=== PATIENT | male | born 1995 | race Caucasian/White ===

== ENCOUNTER → 2018-03-23 | Outpatient (CLI) | payer BC ==
[~2018-03-23] MED LIST: HUMALOG100 U/ML SC; NORCO 325 MG-51 TAB PO; NOVOLOG FLEX100 U/ML SQ; ZOFRAN4 M1 PO
== END ==
LOC: SUN.DIA 14:36
DX: E10.9 Type 1 diabetes mellitus without complications (principal); Z79.4 Long term (current) use of insulin
CPT/HCPCS: G0108

== ENCOUNTER → 2018-04-19 | Outpatient (CLI) | payer BC | LOC: SUN.DIA 13:11 | DX: E10.9 Type 1 diabetes mellitus without complications (principal); Z79.4 Long term (current) use of insulin | CPT/HCPCS: G0108 ==

== ENCOUNTER 2018-06-22 10:54 | Emergency (ER) | payer BC ==
[~2018-06-22] VITALS: Ht 172.7 cm; Wt 61.4 kg
[2018-06-22] MEDS ORDERED: TRACEBA (13:18)
[2018-06-22 13:55] LABS: COLLECTION METHOD CLEAN CATCH
[2018-06-22 14:04] LABS: PH 6 (5-8); SQUAMOUS EPITHELIAL None Seen /hpf; URINE APPEARANCE Clear; URINE BACTERIA None Seen /hpf; URINE BILIRUBIN Negative (NEGATIVE); URINE BLOOD Negative (NEGATIVE); URINE COLOR Yellow; URINE GLUCOSE 3+ (NEGATIVE); URINE KETONE Trace (NEGATIVE); URINE LEUKOCYTE ESTERASE Negative (NEGATIVE); URINE NITRATE Negative (NEGATIVE); URINE PROTEIN(semi-quant) Negative (NEGATIVE); URINE RBC 0-2 /hpf; URINE UROBILINOGEN Negative (NEGATIVE)
[2018-06-22 14:13] LABS: BASO % 0.1 % (0.0-2.0); EOS # 0.1 (0.0-0.7); EOS % 1.3 % (0-4.0); GRAN # 4.1 (1.4-6.5); HEMATOCRIT 46.2 % (36.0-47.0); HEMOGLOBIN 15.9 g/dl (12.5-16.1); LYMPH # 1.5 (1.2-3.4); LYMPH % 22.4 % (20.0-51.0); MEAN CELL VOLUME 83 fl (80.0-95.0); MEAN CORPUSCULAR HEMOGLOBIN 29 pg (26.0-32.0); MEAN CORPUSCULAR HGB CONC 34 g/dl (33.0-37.0); MEAN PLATELET VOLUME 9.4 fl (7.4-10.4); MONO # 1.1 (0.1-0.6); MONO % 15.9 % (1.7-9.3); PLATELET COUNT 259 K/mm3 (130-400); RED BLOOD COUNT 5.54 M/mm3 (4.20-5.60); REDCELL DISTRIBUTION WIDTH-CV 12.1 % (11.5-14.5)
[2018-06-22 14:25] LABS: ALANINE AMINOTRANSFERASE 28 U/L (21-72); ALBUMIN 3.8 gm/dL (3.5-5.0); ALKALINE PHOSPHATASE 114 U/L (50-136); ANION GAP 8 mmol/L (7-16); AST,SGOT 17 U/L (15-37); BILIRUBIN,TOTAL 0.5 mg/dL (0.0-1.0); BLOOD UREA NITROGEN 12 mg/dL (9-20); CARBON DIOXIDE 28 mmol/L (22-30); CHLORIDE 99 mmol/L (98-107); CREATININE, serum 0.65 mg/dL (0.66-1.25); GLUCOSE 279 mg/dL (74-106); LIPASE 36 U/L (23-300); POTASSIUM 4.2 mmol/L (3.4-5.0); SODIUM 135 mmol/L (137-145); TOTAL PROTEIN 6.5 gm/dL (6.4-8.2)
[2018-06-22 14:27] LABS: C-REACTIVE PROTEIN < 0.5 mg/dL (0.0-0.9)
[2018-06-22 14:32] LABS: ACETONE,SERUM NEGATIVE
[2018-06-22] MEDS ORDERED: COMPAZINE 5MG TA5 MG PO (15:47)
[2018-06-22 16:00] VITALS: BP 128/84; PULSE 94; TEMP 98.7
== END 2018-06-22 15:55 | disposition home or self-care (01) ==
LOC: COL.ER 10:54
PROVIDERS: Emergency Medicine
DX: E10.9 Type 1 diabetes mellitus without complications (principal); E86.0 Dehydration; R19.7 Diarrhea, unspecified; Z88.0 Allergy status to penicillin; Z88.8 Allergy status to other drugs, medicaments and biological substances
CPT/HCPCS: J1200; J2550; J7030